=== PATIENT | female | born 1985 | race Caucasian/White ===

== ENCOUNTER 2019-11-05 13:13 | Emergency (ER) | payer MEDICAID ==
[~2019-11-05] VITALS: Ht 170.2 cm; Wt 72.6 kg
[2019-11-05 14:04] VITALS: BP 110/62
--- NOTE | 2019-11-05 14:04 | NUR ---
Patient discharged to home in stable conditon. Written and verbal after care instructions given. Patient verbalizes understanding of instructions.
== END 2019-11-05 14:06 | disposition home or self-care (01) ==
LOC: ER 13:13
DX: B35.6 Tinea cruris (principal)
CPT/HCPCS: A4663